=== PATIENT | female | born 1960 | race African-American/Black ===

== ENCOUNTER 2016-11-23 11:19 | Emergency (ER) | payer OTHER ==
[2016-11-23 11:26] VITALS: TEMP 98.6
--- NOTE | 2016-11-23 12:33 | EDPHY ---
H & P Stated Complaint: mechanical fall 10 days ago onto coccyx Source: Patient - Personal History LMP (Females 10-55): Unknown Current Tetanus/Diphtheria Vaccine: Unsure Current Tetanus Diphtheria and Acellular Pertussis (TDAP): Unsure - Medical/Surgical History Hx Asthma: No Hx Chronic Respiratory Disease: No Hx Diabetes: No Hx Cardiac Disease: No Hx Renal Disease: No Hx Cirrhosis: No Hx Alcoholism: No Hx HIV/AIDS: No Hx Splenectomy or Spleen Trauma: No Other PMH: htn - Social History Smoking Status: Never smoked Time Seen by Provider: 11/23/16 12:33 HPI/ROS: HPI: This is a 56-year-old female who presents with Chief Complaint: Lower back pain Location: Lumbar back Quality: Sharp pain Duration: 2 weeks Signs and Symptoms: No bleeding, + radiation into left buttock, no numbness, no weakness, no tingling, no incontinence, no decreased range of motion Timing: Gradually worsening Severity: Moderate Context: Patient reports that she was walking across the surface talking to a friend and her shoe got tripped up on a crack and she landed directly on her tailbone with immediate pain approximately 2 weeks ago. Since that time she has had continued pain in her lower back that now radiates into her left buttock and worsened with flexion and relieved with extension. She has been seeing a chiropractor and last week x-rays were obtained and were negative per patient. She has had multiple adjustments with no relief of pain. She denies incontinence/dysuria/loss of function/paresthesias. She has been using a 4 pronged cane to aid in ambulation. Modifying Factors: See above Comment: ROS: see HPI Constitutional: No fever, no chills, no weight loss Eyes: No blurred vision Respiratory: No shortness of breath, no cough Cardiovascular: No chest pain Gastrointestinal: No nausea, no vomiting no diarrhea Genitourinary: No dysuria Extremities: No myalgias Neurologic: No weakness, no numbness Skin: No rashes Hematologic: No bruising, no bleeding MEDICAL/SURGICAL/SOCIAL HISTORY: Medical history: Hypertension. Surgical history: Denies Social history: Employed. CONSTITUTIONAL: Pleasant adult black female, awake and alert, no obvious distress HEENT: Atraumatic and normocephalic, PERRL, EOMI. Tympanic membranes clear. No tympanic membrane rupture. Nares patent; no septal hematoma. Oropharynx clear, no exudate and moist pink mucosa. Airway patent. No lymphadenopathy. NECK: supple, no midline tenderness, flexion 45 degrees, extension 45 degrees, right and left lateral flexion 45 degrees. No meningismus. Cardiovascular: Normal S1/S2, regular rate, regular rhythm, without murmur rub or gallop. PULMONARY/CHEST: Symmetrical and nontender. no crepitus. Clear to auscultation bilaterally. Good air movement. No accessory muscle usage. ABDOMEN: Soft, nondistended, nontender, no ecchymosis, no rebound, no guarding , no peritoneal signs, no masses or organomegaly. No CVAT. PELVIC: no pain with rocking; bilateral hips flexion 125 degrees, extension 30 degrees, with no pain internal rotation and no pain external rotation. BACK: Lower approximately at L4-L5 midline tenderness, + left SI joint tenderness, no paraspinous spasm, deep tendon reflexes 2/2, no pain with straight leg raise; bilateral hips full range of motion. Strength 5/5 throughout. EXTREMITIES: 2/2 pulses, no deformities, no clubbing, no cyanosis or edema. NEUROLOGICAL: no focal neuro deficits. GCS 15. SKIN: Warm and dry, no erythema. no rash. Good capillary refill. (Carmen Amaya) Constitutional: Initial Vital Signs Temperature (C) 37.0 C 11/23/16 11:24 Heart Rate 81 11/23/16 11:24 Respiratory Rate 16 11/23/16 11:24 Blood Pressure 157/81 H 11/23/16 11:24 O2 Sat (%) 97 11/23/16 11:24 O2 Delivery Mode Room Air Allergies/Adverse Reactions: penicillin G Allergy (Verified 11/23/16 11:23) Home Medications: Medication Instructions Recorded CYCLOBENZAPRINE HCL [Flexeril] 5 mg PO TIDPRN PRN #12 tab 11/23/16 methylPREDNISolone [Medrol Dose 1 each PO AD #0 ea 11/23/16 Nilay] Medical Decision Making - Diagnostics Imaging Results: Imaging Impressions Lumbar Spine CT 11/23/16 12:37 Impression: 1. No definite fracture. 2. L5-S1 moderate degenerative disk disease and facet arthropathy with right lateral osteophytes resulting in moderate to severe right neural foraminal stenosis, mild to moderate left neural foraminal stenosis, and a possible small left paramedian disk herniation abutting the left S1 nerve root. 3. Consider MR lumbar spine if clinically indicated. Findings and recommendations discussed with Emergency Department physician, Carmen Amaya at 1323 hour, 11/23/2016. Final report concurs with initial preliminary interpretation. Sacrum and Coccyx X-Ray 11/23/16 13:27 Impression: No acute or subacute osseous abnormality. ED Course/Re-evaluation: CT lumbar spine ordered and sacral coccyx xray No signs of neurovascular compromise/tenting of skin/compartment syndrome/ extremities and joints examined above and below area of concern and are neurovascularly intact. 1325: Called by radiologist who notes moderate stenosis at L5-S1 level with mild left disc protrusion; no signs of compression fracture. Recommend sacral coccyx x-ray Coccyx x-ray my read shows no fracture/dislocation Discussed multiple options with patient; agreeable to Medrol Dosepak and muscle relaxers p.r.n. She is advised to follow up with Neurosurgery for MRI lumbar outpatient if symptoms persist or worsen Patient is ambulatory at this time and is driving herself home today. (Carmen Amaya) I did not see this patient while she was in the emergency department. However her care was discussed with the PA while the patient was in the department. I agree with treatment plan and management (Warren Lou) Differential Diagnosis: Back pain including but not limited to muscular pain, herniated disc, spine fracture, intra-abdominal causes and urinary tract infection. (Carmen Amaya) Departure - Departure Disposition: Home, Routine, Self-Care Clinical Impression: Protrusion of intervertebral disc of lumbosacral region, Lumbar radicular pain Condition: Good Instructions: Lumbar Disc Herniation (ED), Lumbar Radiculopathy (ED) Referrals: Sualiman Goldstein MD [Medical Doctor] - As per Instructions Prescriptions: CYCLOBENZAPRINE HCL [Flexeril] 5 mg PO TIDPRN PRN #12 tab PRN Reason: Spasms methylPREDNISolone [Medrol Dose Nilay] 1 each PO AD #0 ea
[2016-11-23 14:37] VITALS: BP 132/87; PULSE 71; RESP 18; O2SAT 98
== END 2016-11-23 14:37 | disposition home or self-care (01) ==
DX: M51.87 Other intervertebral disc disorders, lumbosacral region (principal); M54.16 Radiculopathy, lumbar region; I10 Essential (primary) hypertension